=== PATIENT | male | born 1945 | race Caucasian/White ===

== ENCOUNTER → 2020-11-15 | Outpatient (CLI) | payer MEDICARE ==
[2020-11-16 03:07] LABS: Hepatitis B Surface Antigen Non-Reactive (Non-Reactive)
[2020-11-16 17:21] LABS: Hepatitis B Surface AB- Quant <3.5 mIU/mL; Hepatitis B Surface Antibody Non-Reactive (Non-Reactive)
== END | disposition home or self-care (01) ==
LOC: LABWHC1 11:34
PROVIDERS: ATTEND Internal Medicine Gastroenterology
DX: K50.80 Crohn's disease of both small and large intestine without complications (principal); F32.9 Major depressive disorder, single episode, unspecified
CPT/HCPCS: 36415; 86140; 86480; 86704; 86706; 87340

== ENCOUNTER → 2021-10-02 | Outpatient (CLI) | payer MEDICARE ==
[2021-10-02 14:42] LABS: HCT 45.5 % (39.6-50.0); HGB 15.2 g/dL (13.0-17.0); MCH 30.3 pg (27.0-32.0); MCHC 33.4 g/dL (32.0-37.0); MCV 90.8 fL (80.0-97.0); Mean Platelet Volume 10.2 fL (9.5-12.2); NRBC Per 100 WBC 0 /100 WBCS (0.0-0.0); Platelet Count 207 X 10*3/uL (140-440); RBC 5.01 X 10*6/uL (4.40-5.60); WBC 8.35 X 10*3/uL (4.50-10.00)
== END | disposition home or self-care (01) ==
LOC: LABWHC1 09:10
PROVIDERS: ATTEND Internal Medicine Gastroenterology
DX: K50.80 Crohn's disease of both small and large intestine without complications (principal)
CPT/HCPCS: 36415; 83993; 85027; 86140

== ENCOUNTER → 2021-11-19 | Day surgery (SDC) | payer MEDICARE ==
[~2021-11-19] MED LIST: GLUCAGON 1 MG/ML VIAL IM STA
[2021-11-19 08:29] VITALS: BP 133/85; PULSE 77; RESP 16; TEMP 98.3
--- NOTE | 2021-11-19 21:06 | MR ---
EXAMINATION TYPE: MR Enterography DATE OF EXAM: 11/19/2021 COMPARISON: HISTORY: CROHN'S DISEASE CONTRAST: Standard multiplanar, multisequence imaging of the abdomen is performed without and with IV contrast, patient is injected with 10 mL intravenous Gadavist gadolinium contrast. Oral Volumen and Water was given as per enterography protocol. FINDINGS: LOWER CHEST: No significant findings. ABDOMEN Bowel: The small bowel distention is inadequate proximally. There is postsurgical changes with circum ferential wall thickening of the anastomotic small bowel measuring up to 8 mm. There is mucosal hyper enhancement involving this anastomotic small bowel. This is best appreciated on series 901 image 69. No evidence for bowel obstruction. There is few scattered clonic diverticula seen throughout the sig moid colon. No evidence of abscess or fistula. Peritoneum: No evidence of pneumoperitoneum, free fluid. Prominently enlarged right lower quadrant l ymph nodes in the mesentery of the a forementioned small bowel anastomotic hyperenhancement and wall thickening. These measure up to 10 mm in short axis. Liver: Unremarkable. Gallbladder and Bile ducts: Low T2 signal polypoid lesions are seen in the gallbladder lumen. Pancreas: Unremarkable. Spleen: Unremarkable. Adrenal glands: Unremarkable. Kidneys: Bilateral parapelvic renal cysts. Bladder: Unremarkable. Reproductive: Unremarkable. Vasculature: Unremarkable. No aortic aneurysm. Musculoskeletal: The osseous structures appear intact. Abdominal wall: Unremarkable. IMPRESSION: 1. Post surgical changes of the colon with the anastomotic small bowel demonstrating mucosal hyperenh ancement and circumferential wall thickening suggestive of active Crohn's disease. There is associate d adjacent mesenteric reactive lymph nodes. 2. Colonic diverticulosis. 3. Cholelithiasis.
== END ==
LOC: RADMRIMAIN 08:07
PROVIDERS: ATTEND Internal Medicine Gastroenterology
DX: K50.80 Crohn's disease of both small and large intestine without complications (principal)
CPT/HCPCS: 96372; 72197; 74183; J1610; A9585

== ENCOUNTER → 2022-01-28 | Outpatient (CLI) | payer MEDICARE ==
[2022-01-28 15:13] LABS: Basophils # (A) 0.05 X 10*3/uL (0.00-0.10); Basophils % (A) 0.7 %; Eosinophils # (A) 0.31 X 10*3/uL (0.04-0.35); Eosinophils % (A) 4.4 %; HCT 45.2 % (39.6-50.0); Immature Grans, Automated 0.4 %; Lymphocytes # (A) 1.55 X 10*3/uL (0.90-5.00); Lymphocytes % (A) 21.8 %; MCH 30.5 pg (27.0-32.0); MCHC 33.2 g/dL (32.0-37.0); MCV 91.9 fL (80.0-97.0); Mean Platelet Volume 10.5 fL (9.5-12.2); Monocytes # (A) 0.66 X 10*3/uL (0.20-1.00); Monocytes % (A) 9.3 %; NRBC Per 100 WBC 0 /100 WBCS (0.0-0.0); Neutrophils # (A) 4.51 X 10*3/uL (1.80-7.70); Neutrophils % (A) 63.4 %; Platelet Count 215 X 10*3/uL (140-440); RBC 4.92 X 10*6/uL (4.40-5.60); WBC 7.11 X 10*3/uL (4.50-10.00)
[2022-01-28 15:40] LABS: ALT 22 U/L (10-49); AST 24 U/L (14-35); African American GFR (CKD) 54.9 (60.0-200.0); Albumin 4.3 g/dL (3.8-4.9); Albumin/Globulin Ratio 1.54 (1.60-3.17); Alkaline Phosphatase 59 U/L (41-126); BUN/Creat Ratio 20.35 Ratio (12.00-20.00); Blood Urea Nitrogen 28.7 mg/dL (9.0-27.0); Calcium 9.4 mg/dL (8.7-10.3); Carbon Dioxide 22.7 mmol/L (20.0-27.5); Chloride 105 mmol/L (96-109); Chol/HDL Ratio 5.31 Ratio; Globulin 2.8 g/dL (1.6-3.3); Glucose 118 mg/dL (70-110); LDL Cholesterol,Calculated 136.3 mg/dL (0.0-131.0); Non-African American GFR(CKD) 47.4 (60.0-200.0); Sodium 141 mmol/L (135-145); Total Protein 7.2 g/dL (6.2-8.2)
== END | disposition home or self-care (01) ==
LOC: LABWHC1 08:32
PROVIDERS: ATTEND Family Medicine
DX: N40.0 Benign prostatic hyperplasia without lower urinary tract symptoms (principal); R53.83 Other fatigue; E78.5 Hyperlipidemia, unspecified
CPT/HCPCS: 80061; 80053; 82607; 84443; 85025; 82306; 36415; G0103

== ENCOUNTER → 2022-02-18 | Outpatient (CLI) | payer MEDICARE ==
[2022-02-18 09:16] LABS: African American GFR (CKD) 75 (>60 ml/min/1.73 sqM); Anion Gap 10 mmol/L; Blood Urea Nitrogen 23 mg/dL (9-20); Calcium 9.2 mg/dL (8.4-10.2); Carbon Dioxide 24 mmol/L (22-30); Chloride 105 mmol/L (98-107); Glucose 114 mg/dL (74-99); Non-African American GFR(CKD) 65 (>60 ml/min/1.73 sqM); Potassium 4.9 mmol/L (3.5-5.1); Sodium 139 mmol/L (137-145)
== END | disposition home or self-care (01) ==
LOC: LABWHC1 08:35
PROVIDERS: ATTEND Family Medicine
DX: N28.9 Disorder of kidney and ureter, unspecified (principal)
CPT/HCPCS: 36415; 80048

== ENCOUNTER → 2022-10-28 | Outpatient (CLI) | payer MEDICARE ==
--- NOTE | 2022-10-29 20:16 | MR ---
EXAMINATION TYPE: MR brain and iac wo/w con DATE OF EXAM: 10/28/2022 6:50 PM CLINICAL INDICATION:Male, 76 years old with history of H90.821; COMPARISON: None TECHNIQUE: Multi planar, multi sequence imaging was performed through the brain. Specialized thin s equences were obtained through the internal auditory canals. Pre-and post gadolinium sequences were obtained. MR contrast: IV Contrast: 10 cc Gadavist FINDINGS: The alvarez-white junctions, ventricular system, and cisterns appear unremarkable. Midline structures sh ow no abnormality. Diffusion-weighted imaging shows no evidence of restricted diffusion. The suscepti bility weighted images do not reveal any evidence for micro-hemorrhage. The bone marrow signal is within normal limits. Paranasal sinuses and mastoid air cells: Mild scattered paranasal sinus disease. Visualized orbits: Bilateral aphakia After administration of gadolinium, no abnormal enhancement is seen. The internal auditory canal sequences demonstrate no significant irregularity. The 7th cranial nerve s, 8 cranial nerves, and cerebellar pontine angles appear unremarkable. After the administration krishna olinium, no abnormal enhancement is seen within the internal auditory canals. Vascular loop: Left Type II: entering, but not extending >50% of the length of the IAC IMPRESSION: 1. No evidence of intracranial mass nor acute/subacute CVA. 2. No evidence of internal auditory canal abnormality. 3. Left type 2 internal auditory canal vascular loop.
== END | disposition home or self-care (01) ==
LOC: RADMRIMAIN 17:30
PROVIDERS: ATTEND Otolaryngology Sleep Medicine
DX: H90.A21 Sensorineural hearing loss, unilateral, right ear, with restricted hearing on the contralateral side (principal); G46.8 Other vascular syndromes of brain in cerebrovascular diseases
CPT/HCPCS: 70553; A9585

== ENCOUNTER 2023-07-25 19:07 | Observation (INO) | payer MEDICARE ==
--- NOTE | 2023-07-25 19:28 | ED ---
Chest Pain HPI - General Chief Complaint: Chest Pain Stated Complaint: Chest Pains Time Seen by Provider: 07/25/23 19:14 Source: patient Mode of arrival: ambulatory Limitations: no limitations - History of Present Illness Initial Comments: 77-year-old male presenting with chief complaint of chest pain. Pain started around 40 minutes prior to arrival. The pain was persistent for about 30 minutes. Craig like a pressure in the center of the chest. No active chest pain at this time. Not worse with exertion. No shortness of breath. No nausea or vomiting. No dizziness. No cough, congestion, sore throat, fever, chills. Pain does not radiate to the shoulder or jaw. No numbness tingling or weakness. Patient has no cardiac history. He took one 81 mg aspirin prior to arrival - Related Data Home Medications Medication Instructions Recorded Confirmed buPROPion HCL [buPROPion HCL XL] 300 mg PO DAILY 11/19/21 07/25/23 traZODone HCL [Desyrel] 50 mg PO HS 11/19/21 07/25/23 Ascorbic Acid [Vitamin C] 1,000 mg PO DAILY 07/25/23 07/25/23 Aspirin EC [Ecotrin Low Dose] 81 mg PO DAILY 07/25/23 07/25/23 Finasteride [Proscar] 5 mg PO HS 07/25/23 07/25/23 L.acidoph,Paracasei, B.lactis 1 cap PO DAILY 07/25/23 07/25/23 [Probiotic] Lurasidone [Latuda] 40 mg PO DAILY 07/25/23 07/25/23 [place]-3/Dha/Epa/Fish Oil [Fish Oil 1 cap PO DAILY 07/25/23 07/25/23 1,000 mg Softgel] Sertraline [Zoloft] 50 mg PO BID 07/25/23 07/25/23 Vitamin B Complex 1 cap PO DAILY 07/25/23 07/25/23 Allergies Allergy/AdvReac Type Severity Reaction Status Date / Time No Known Allergies Allergy Verified 07/25/23 20:47 Review of Systems ROS Statement: Those systems with pertinent positive or pertinent negative responses have been documented in the HPI. ROS Other: All systems not noted in ROS Statement are negative. EKG Findings - EKG Comments: EKG Findings:: Sinus rhythm with first-degree AV block ventricular rate 89. W[place] interval 216. QRS 110. Past Medical History Past Medical History: No Reported History Additional Past Medical History / Comment(s): crohns History of Any Multi-Drug Resistant Organisms: None Reported Past Surgical History: Bowel Resection, Hernia Repair Past Psychological History: Depression Smoking Status: Never smoker Past Alcohol Use History: None Reported Past Drug Use History: None Reported General Exam Limitations: no limitations General appearance: alert, in no apparent distress Head exam: Present: atraumatic, normocephalic Eye exam: Present: normal appearance, EOMI Neck exam: Present: normal inspection Respiratory exam: Present: normal lung sounds bilaterally. Absent: respiratory distress, wheezes, rales, rhonchi, stridor Cardiovascular Exam: Present: regular rate, normal rhythm, normal heart sounds. Absent: systolic murmur, diastolic murmur, rubs, gallop, clicks Neurological exam: Present: alert, oriented X3 Psychiatric exam: Present: normal affect, normal mood Skin exam: Present: warm, dry Course Vital Signs 07/25/23 07/25/23 07/25/23 19:09 19:20 20:12 Temperature 97.8 F Pulse Rate 88 84 82 Respiratory 18 18 18 Rate Blood Pressure 119/78 134/87 137/88 O2 Sat by Pulse 97 95 95 Oximetry 07/25/23 21:59 Temperature Pulse Rate 82 Respiratory 16 Rate Blood Pressure 138/84 O2 Sat by Pulse 94 L Oximetry Chest Pain MDM - MDM Was pt. sent in by a medical professional or institution (, PA, WIPING RAG WASHER, urgent care, hospital, or retirement...) When possible be specific @ -No Did you speak to anyone other than the patient for history (EMS, parent, family, police, friend...)? What history was obtained from this source @ -No Did you review nursing and triage notes (agree or disagree)? Why? @ -I reviewed and agree with nursing and triage notes Were old charts reviewed (outside hosp., previous admission, EMS record, old EKG, old radiological studies, urgent care reports/EKG's, retirement records)? Report findings @ -No old charts were reviewed Differential Diagnosis (chest pain, altered mental status, abdominal pain women, abdominal pain men, vaginal bleeding, weakness, fever, dyspnea, syncope, headache, dizziness, GI bleed, back pain, seizure, CVA, palpatations, mental health, musculoskeletal)? @ -MDM Differential Chest Pain: Stable Angina, Unstable Angina, STEMI, NSTEMI Aortic Dissection, Pneumothorax, Musculoskeletal, Esophageal Spasm GERD, Cholecystitis, Pancreatitis, Zoster This is not meant to be an all-inclusive list. EKG interpreted by me (3pts min.). @ -As above X-rays interpreted by me (1pt min.). @ -Chest x-ray shows no acute process CT interpreted by me (1pt min.). @ -None done U/S interpreted by me (1pt. min.). @ -None done What testing was considered but not performed or refused? (CT, X-rays, U/S, labs)? Why? @ -None What meds were considered but not given or refused? Why? @ -None Did you discuss the management of the patient with other professionals (professionals i.e. , PA, WIPING RAG WASHER, lab, RT, psych nurse, drug abuse social worker, lawyer real estate, teacher, education officer, hospice case manager)? Give summary @ -I spoke with Dr. De La Cruz who accepted admission Was smoking cessation discussed for >3mins.? @ -No Was critical care preformed (if so, how long)? @ -No Were there social determinants of health that impacted care today? How? (Homelessness, low income, unemployed, alcoholism, drug addiction, transportation, low edu. Level, literacy, decrease access to med. care, [facility], rehab)? @ -No Was there de-escalation of care discussed even if they declined (Discuss DNR or withdrawal of care, Hospice)? DNR status @ -No What co-morbidities impacted this encounter? (DM, HTN, Smoking, COPD, CAD, Cancer, CVA, ARF, Chemo, Hep., AIDS, mental health diagnosis, sleep apnea, morbid obesity)? @ -None Was patient admitted / discharged? Hospital course, mention meds given and route, prescriptions, significant lab abnormalities, going to OR and other pertinent info. @ -77-year-old male presenting with chief complaint of chest pain. He describes this as a pressure-like pain that was located in the center of the chest. Pain stopped about 10 minutes prior to my examination. History and physical exam are conducted. His lab work is grossly unremarkable, negative troponin. Chest x-ray shows no acute process. EKG shows no ST deviation. On reassessment he is resting comfortably in no acute distress. Pain has not returned. Patient is educated on today's findings. He will be admitted for observation with repeat troponins and evaluation by cardiology. He is agreeable with this plan. I discussed this case with my attending Dr. Bradley Undiagnosed new problem with uncertain prognosis? @ -No Drug Therapy requiring intensive monitoring for toxicity (Heparin, Nitro, Insulin, Cardizem)? @ -No Were any procedures done? @ -No Diagnosis/symptom? @ -Chest pain Acute, or Chronic, or Acute on Chronic? @ -Acute Uncomplicated (without systemic symptoms) or Complicated (systemic symptoms)? @ -Complicated Side effects of treatment? @ -No Exacerbation, Progression, or Severe Exacerbation? @ -No Poses a threat to life or bodily function? How? (Chest pain, [place], PA, pneumonia, PE, COPD, DKA, ARF, appy, cholecystitis, CVA, Diverticulitis, Homicidal, Suicidal, threat to staff... and all critical care pts) @ -Yes Disposition Clinical Impression: Chest pain Disposition: ADMITTED IP TO THIS HOSP Condition: Fair Time of Disposition: 21:10
[2023-07-25] MEDS: SODIUM CHLORIDE 0.9% 500 ML 500 ML IV STA (19:45)
[2023-07-25] MEDS: ASPIRIN 81 MG PO STA (19:45)
[2023-07-25 20:11] LABS: Basophils # (A) 0.1 k/uL (0-0.2); Basophils % (A) 1 %; Eosinophils # (A) 0.3 k/uL (0-0.7); Eosinophils % (A) 4 %; HCT 45.6 % (39.0-53.0); HGB 14.9 gm/dL (13.0-17.5); Lymphocytes # (A) 2.1 k/uL (1.0-4.8); Lymphocytes % (A) 28 %; MCH 30.2 pg (25.0-35.0); MCHC 32.8 g/dL (31.0-37.0); MCV 92.2 fL (80.0-100.0); Mean Platelet Volume 7.5; Monocytes # (A) 0.5 k/uL (0-1.0); Monocytes % (A) 6 %; Neutrophils # (A) 4.5 k/uL (1.3-7.7); Neutrophils % (A) 59 %; Platelet Count 180 k/uL (150-450); RBC 4.94 m/uL (4.30-5.90); RDW 13.8 % (11.5-15.5); WBC 7.6 k/uL (3.8-10.6)
[2023-07-25 20:20] LABS: Partial Thromboplastin Time 22.8 sec (22.0-30.0); Prothrombin Time 10.6 sec (10.0-12.5)
[2023-07-25 20:25] LABS: ALT 45 U/L (4-49); AST 59 U/L (17-59); African American GFR (CKD) 74 (>60 ml/min/1.73 sqM); Alkaline Phosphatase 77 U/L (38-126); Amylase 63 U/L (30-110); Anion Gap 8 mmol/L; Blood Urea Nitrogen 27 mg/dL (9-20); Calcium 9.7 mg/dL (8.4-10.2); Carbon Dioxide 23 mmol/L (22-30); Chloride 106 mmol/L (98-107); Glucose 117 mg/dL (74-99); Lipase 33 U/L (23-300); Magnesium 1.8 mg/dL (1.6-2.3); Non-African American GFR(CKD) 64 (>60 ml/min/1.73 sqM); Sodium 137 mmol/L (137-145); Total Bilirubin 0.6 mg/dL (0.2-1.3); Total Protein 6.5 g/dL (6.3-8.2)
--- NOTE | 2023-07-25 20:57 | XR ---
EXAMINATION TYPE: XR chest 2V DATE OF EXAM: 07/25/2023 7:57 PM CLINICAL INDICATION:Male, 77 years old with history of Chest Pain; [facility] COMPARISON: None TECHNIQUE: XR chest 2V. Frontal and lateral views of the chest.. FINDINGS: Lines/Tubes/Devices: EKG leads overlie the chest. No indwelling lines are seen. Heart/mediastinum: Heart size is normal. Mediastinum appears normal. Pulmonary vascularity: Not increased, Lungs/Pleura: There is no evidence of pleural effusion, focal consolidation, or pneumothorax. Mild c hronic change versus subsegmental atelectasis at the left lung base. Musculoskeletal: No acute osseous abnormality demonstrated in the limits of the exam. Multilevel endplate spurring in the spine. Other findings: None. IMPRESSION: No acute cardiopulmonary abnormality.
[2023-07-25] MEDS ORDERED: NALOXONE 0.4 MG/ML 1 ML VIAL IV PRN (21:09)
--- NOTE | 2023-07-26 04:32 | P.HPIM ---
History of Present Illness H&P Date: 07/25/23 Chief Complaint: Chest pain 77-year-old male with history of depression coming in for evaluation of chest pain he describes sudden onset while having dinner with his family felt chest pressure across his chest nonradiating not associated with any shortness of breath dizziness lightheadedness nausea vomiting profuse sweating or palpitations. Patient took 1 baby aspirin at home waited for about 45 minutes patient pain was not improving and decided to come in for evaluation Patient reports years ago he had a left heart cath and a stress test and both reported to be normal normal Patient denies any tobacco smoking illicit drugs or heavy alcohol Patient denies any recent travel leg swelling denies any history of blood clots denies any diagnosis of cancer. Patient reports that normally he he is pretty much not active does not climb any stairs does not do any house chores however he is able to go grocery shopping pushes the cart with no limitations related chest pain or shortness of breath review of systems Pertinent positives as noted in HPI. All other systems were reviewed and are negative on exam Constitutional: No acute distress, conversant, pleasant Eyes: Anicteric sclerae, moist conjunctiva, Pupils equal round reactive to light ENMT: NC/AT Oropharynx clear, no erythema, or exudates Neck: Supple, no masses, or JVD No carotid bruits No thyromegaly Lungs: Clear to auscultation Clear to percussion Normal respiratory effort, no accessory muscle use Cardiovascular: Heart regular in rate and rhythm, No murmurs, gallops, or rubs No peripheral edema Abdominal: Soft Nontender, no guarding, rebound or rigidity Abdomen moving with respiration Normoactive bowel sounds b Extremities: No digital cyanosis No clubbing Pedal pulses intact and symmetrical Radial pulses intact and symmetrical No calf tenderness Psychiatric: Alert and oriented to person, place and time Appropriate affect fair judgement Neuro Muscles Strength 5/5 in all 4 extremities Sensation to light touch grossly present throughout Cranial nerves II-XII grossly intact Past Medical History Past Medical History: No Reported History Additional Past Medical History / Comment(s): crohns History of Any Multi-Drug Resistant Organisms: None Reported Past Surgical History: Bowel Resection, Hernia Repair Past Psychological History: Depression Smoking Status: Never smoker Past Alcohol Use History: None Reported Past Drug Use History: None Reported Medications and Allergies Home Medications Medication Instructions Recorded Confirmed Type buPROPion HCL [buPROPion HCL XL] 300 mg PO DAILY 11/19/21 07/25/23 History traZODone HCL [Desyrel] 50 mg PO HS 11/19/21 07/25/23 History Ascorbic Acid [Vitamin C] 1,000 mg PO DAILY 07/25/23 07/25/23 History Aspirin EC [Ecotrin Low Dose] 81 mg PO DAILY 07/25/23 07/25/23 History Finasteride [Proscar] 5 mg PO HS 07/25/23 07/25/23 History L.acidoph,Paracasei, B.lactis 1 cap PO DAILY 07/25/23 07/25/23 History [Probiotic] Lurasidone [Latuda] 40 mg PO DAILY 07/25/23 07/25/23 History [place]-3/Dha/Epa/Fish Oil [Fish Oil 1 cap PO DAILY 07/25/23 07/25/23 History 1,000 mg Softgel] Sertraline [Zoloft] 50 mg PO BID 07/25/23 07/25/23 History Vitamin B Complex 1 cap PO DAILY 07/25/23 07/25/23 History Allergies Allergy/AdvReac Type Severity Reaction Status Date / Time No Known Allergies Allergy Verified 07/25/23 20:47 Physical Exam Vitals: Vital Signs Temp Pulse Pulse Resp BP BP Pulse Ox 07/26/23 02:50 97.5 F L 101 H 16 128/73 95 07/25/23 23:06 97.6 F 77 16 127/78 94 L 07/25/23 21:59 82 16 138/84 94 L 07/25/23 20:12 82 18 137/88 95 07/25/23 19:20 84 18 134/87 95 07/25/23 19:09 97.8 F 88 18 119/78 97 Intake and Output 07/25/23 07/25/23 07/26/23 14:59 22:59 06:59 Other: # Voids 2 Weight 99.79 kg Results CBC & Chem 7: 07/25/23 19:49 07/25/23 19:49 Labs: Abnormal Lab Results - Last 24 Hours (Table) 07/25/23 Range/Units 19:49 BUN 27 H (9-20) mg/dL Glucose 117 H (74-99) mg/dL Thrombosis Risk Factor Assmnt - Choose All That Apply Any of the Below Risk Factors Present?: Yes Each Factor Represents 1 point: Obesity (BMI >25) Other Risk Factors: Yes Each Risk Factor Represents 3 Points: Age 75 years or older Other congenital or acquired thrombophilia - If yes, enter type in comment: No Thrombosis Risk Factor Assessment Total Risk Factor Score: 4 Thrombosis Risk Factor Assessment Level: Moderate Risk Assessment and Plan Assessment: 77-year-old male with depression coming in for central chest pain I discussed the case with ED doctor and accepted the admission for atypical chest pain rule out acute coronary syndrome with anticipated length of stay more than 2 midnights Chest pain Tropes negative continue to trend Cardiac monitoring Start patient on atorvastatin 40 mg daily Cardiology consult Pain control with nitro as needed Aspirin 325 one-time thing continue with 81 mg daily Atorvastatin 40 mg p.o. daily Depression Resume home medications BPH Continue with finasteride Full code DVT prophylaxis heparin subcu 3 times daily
[2023-07-26] MEDS ORDERED: ALPRAZolam 0.25 MG TAB PO PRN (08:52)
[2023-07-26] MEDS ORDERED: NITROGLYCERIN SL TABS 0.4 MG TAB SUBLINGUAL PRN (08:52)
[2023-07-26] MEDS ORDERED: ALPRAZolam 0.5 MG TAB PO PRN (08:52)
[2023-07-26 08:54] VITALS: PULSE 80
[2023-07-26] MEDS: ASPIRIN 81 MG PO SCH (08:57)
[2023-07-26] MEDS: ATORVASTATIN 40 MG TAB PO SCH (08:58)
[2023-07-26] MEDS ORDERED: VERAPAMIL 2.5 MG/ML 2 ML AMP ONE (09:08)
[2023-07-26] MEDS ORDERED: LIDOCAINE 1% INJ 10MG/ML (20 ML MDV) ONE ×2 (09:08→09:56)
[2023-07-26] MEDS ORDERED: fentaNYL (PF) 50 MCG/ML 2 ML AMP ONE (09:08)
[2023-07-26] MEDS ORDERED: HEPARIN SODIUM 1,000 UN/ML (10ML VL) ONE (09:08)
[2023-07-26] MEDS: ATORVASTATIN 80 MG TAB PO STA (09:13)
[2023-07-26] MEDS: ASPIRIN 325 MG TAB PO STA (09:13)
[2023-07-26] MEDS: HEPARIN SODIUM,PORCINE 5,000 UNIT/ML 1 ML VIAL SQ SCH (09:14)
[2023-07-26] MEDS: IV FLUID CONTINUATION 1,000 ML IV ONE (09:18)
[2023-07-26] MEDS: SODIUM CHLORIDE 0.9% 1,000 ML in EMPTY BAG 1 BAG IV SCH (09:28)
[2023-07-26] MEDS: LIDOCAINE 2% (PF) 20 MG/ML 5 ML VIAL SQ ONE (09:50)
[2023-07-26] MEDS: MIDAZOLAM 2 MG/2 ML VIAL IVP ONE ×3 (09:52→10:06)
[2023-07-26] MEDS: fentaNYL (PF) 50 MCG/1 ML VIAL IVP ONE ×2 (09:53→10:04)
--- NOTE | 2023-07-26 09:57 | CONS ---
CONSULTATION CHIEF COMPLAINT: Chest pain. HISTORY OF PRESENT ILLNESS: This is a 77-year-old gentleman with history of depression, who presents to hospital with chest pain. He describes it as a pressure-like sensation in the precordial area that lasted for about half an hour without definite radiation to neck, arm, or back. The pain had resolved after coming to the emergency room. He took an aspirin and following which he became pain-free. His EKG shows sinus rhythm with evidence of prior inferior wall myocardial infarction, left axis deviation, raising the possibility of prior inferior wall myocardial infarction and ST-T wave changes. There is no prior history of coronary artery disease or congestive heart failure. I reviewed the patient does not have any history of diabetes, hypertension, dyslipidemia, smoking. I talked to patient at length and talked to him about his treatment options including cardiac catheterization, stress test, understanding risks and benefits he wishes to proceed with cardiac cath for definitive diagnosis. PAST MEDICAL HISTORY: Significant for depression. CURRENT MEDICATIONS: Include: 1. Proscar. 2. Aspirin. 3. Bupropion. 4. Zoloft. 5. Latuda. ALLERGIES: There are no known drug allergies. FAMILY HISTORY: Negative for premature coronary artery disease. SOCIAL HISTORY: Negative for smoking, EtOH abuse, or drug abuse. REVIEW OF SYSTEMS: 14 out of 14 review of systems has been performed. Pertinents are as documented on exam. PHYSICAL EXAMINATION: GENERAL: Comfortable at rest. Afebrile. VITAL SIGNS: Stable. NECK: There is no jugular venous distention. Carotid upstroke is normal. There is no bruit. CHEST: Reveals good air entry bilaterally. HEART: Reveals first and second heart sounds. No gallop. No murmur. ABDOMEN: Soft, nontender. EXTREMITIES: Did not reveal any edema. Peripheral pulses are felt. LABORATORY DATA: Labs showed that the troponins are negative. Hemoglobin is normal. Renal functions are normal. ASSESSMENT: Unstable angina. PLAN: Patient will undergo cardiac catheterization. Understands risks, benefits, and alternatives. MMODL / IJN: [id number] /
[2023-07-26] MEDS: ISOSORBIDE MONONITRATE ER 30 MG TAB.ER.24H PO SCH (10:13)
[2023-07-26] MEDS: IOPAMIDOL-370 100ML BTL INTRATHECA ONE (10:24)
[2023-07-26] MEDS ORDERED: RX INFO: IV CONTRAST WAS GIVEN 1 EACH MISC MISCELLANE PRN (10:28)
--- NOTE | 2023-07-26 10:42 | CC ---
CARDIAC CATHETERIZATION REPORT INDICATION: Unstable angina. PROCEDURE NOTE: After obtaining informed consent, left heart catheterization and coronary angiogram were performed via the right femoral artery using standard Lynn catheters. The patient will receive moderate conscious sedation. Total sedation time was 24 minutes. Femoral angiogram was performed and Angio-Seal will be deployed for hemostasis. I initially attempted vascular access of the right radial artery with Seldinger technique. We were able to pass the wire through the needle, however, we had difficulty placing the 6-Bolivian sheath. Hence I stopped the procedure from the radial route and proceeded to perform the cath via the right femoral artery. The procedure was completed uneventfully and the right radial artery access site was stable without any bleeding or hematoma at the end of the procedure. FINDINGS: 1. Hemodynamics: Left ventricular end-diastolic pressure is 12 mm. There is no significant gradient across the aortic valve. 2. Left ventriculogram: Left ventriculogram is not performed. 3. Angiographic data: a.Right coronary artery: Right coronary artery is a large dominant vessel that shows mild nonobstructive CAD. Left main coronary artery is a normal-sized vessel and is free of stenosis. Divides into left anterior descending coronary artery and circumflex coronary artery. LAD and its branches, circumflex coronary artery and its branches are free of significant stenosis. 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 PLAN: The patient's chest discomfort is not related to underlying ischemic heart disease. I will obtain a 2D echo to evaluate the pericardium and the aortic root and possible discharge home tomorrow morning. MMJENNIFERL / FIDENCION: [id number] /
--- NOTE | 2023-07-26 12:41 | CA ---
Transthoracic Echo Report Name: Wilfrid Vora Age: 77 Gender: M : 1945 Exam Date: 07/26/2023 09:08 Exam Location: [facility] Ht (in): 73 Wt (lb): 220 Ordering Physician: Aldo Peters MD ([id number]) Attending/Referring Phys: Fran RIVERO Lead Technologist In Cytogenetics Vicky Hagen RDCS Procedure CPT: Indications: Chest Pain Cardiac Hx: Technical Quality: Good Contrast 1: Total Dose (mL): Contrast 2: Total Dose (mL): MEASUREMENTS (Male / Female) Normal Values 2D ECHO LV Diastolic Diameter PLAX 4.7 cm 4.2 - 5.9 / 3.9 - 5.3 cm LV Systolic Diameter PLAX 2.9 cm IVS Diastolic Thickness 1.2 cm 0.6 - 1.0 / 0.6 - 0.9 cm LVPW Diastolic Thickness 1.2 cm 0.6 - 1.0 / 0.6 - 0.9 cm LV Relative Wall Thickness 0.5 RV Internal Dim ED PLAX 3.8 cm LA Systolic Diameter LX 4.0 cm 3.0 - 4.0 / 2.7 - 3.8 cm LV Diastolic Volume MOD BP 82.9 cm??? 67 - 155 / 56 - 104 cm??? LV Systolic Volume MOD BP 27.6 cm??? 22 - 58 / 19 - 49 cm??? LV Ejection Fraction MOD BP 66.7 % >= 55 % LV Diastolic Volume MOD 4C 85.1 cm??? LV Systolic Volume MOD 4C 20.9 cm??? LV Ejection Fraction MOD 4C 75.4 % LV Diastolic Length 4C 7.4 cm LV Systolic Length 4C 5.5 cm LV Diastolic Volume MOD 2C 84.5 cm??? LV Systolic Volume MOD 2C 34.3 cm??? LV Ejection Fraction MOD 2C 59.4 % LV Diastolic Length 2C 7.4 cm LV Systolic Length 2C 6.2 cm LA Volume 50.6 cm??? 18 - 58 / 22 - 52 cm??? LA Volume Index 22.1 cm???/m??? 16 - 28 cm???/m??? M-MODE Aortic Root Diameter MM 3.1 cm AV Cusp Separation MM 2.0 cm DOPPLER AV Peak Velocity 106.0 cm/s AV Peak Gradient 4.5 mmHg MV Area PHT 2.8 cm??? Mitral E Point Velocity 61.0 cm/s Mitral A Point Velocity 93.7 cm/s Mitral E to A Ratio 0.7 MV Deceleration Time 275.3 ms FINDINGS Left Ventricle Left ventricular ejection fraction is estimated at 55-60 %. Left ventricular cavity size normal. Mildly increased septal wall thickness. No obvious regional wall motion abnormalities. Right Ventricle Mild right ventricular dilatation. Unable to estimate the right ventricular systolic pressure. Right Atrium Normal right atrial size. Left Atrium Normal left atrial size. Mitral Valve Structurally normal mitral valve. No mitral stenosis, regurgitation or prolapse. Aortic Valve Trileaflet aortic valve. No aortic valve stenosis or regurgitation. Tricuspid Valve Structurally normal tricuspid valve. No tricuspid stenosis, regurgitation or prolapse. Pulmonic Valve Structurally normal pulmonic valve. No pulmonic regurgitation. Pericardium No pericardial effusion. Aorta Normal size aortic root and proximal ascending aorta. CONCLUSIONS Normal LV function Mildly dilated right ventricle Previewed by: Dr. Aldo Peters MD (Electronically Signed) Final Date: 26 July 2023 12:41
[2023-07-26] MEDS: buPROPion XL 300 MG TAB.ER.24H PO SCH (15:02)
[2023-07-26] MEDS: SERTRALINE 50 MG TAB PO SCH (15:03)
[2023-07-26] MEDS: SODIUM CHLORIDE 0.9% 1,000 ML IV SCH (15:03)
[2023-07-26] MEDS: LURASIDONE 40 MG TAB PO SCH (15:03)
--- NOTE | 2023-07-26 16:24 | P.DS ---
Providers Date of admission: 07/25/23 21:09 Expected date of discharge: 07/26/23 Attending physician: Elsy De La Cruz MD Consults: 07/25/23 21:09 Consult Physician Urgent Consulting Provider: [facility] Consult Reason/Comments: chest pain Do you want consulting provider notified?: Yes, Notify in am Primary care physician: Mikey Douglas Hospital Course: Chest pain Depression BPH Gen: In NAD, non-toxic HEENT: normocephalic, atraumatic, hearing acuity is intant, mucous membranes moist CVS: perfusing all extremities well, no pitting edema, Respiratory: symmetric chest expansion, no accessory muscle use, GI: soft, NTTP, ND, : no suprapubic tenderness, no CVA tenderness MSK/Derm: no rashes, cyanosis Neuro: CN II-XII intact, no motor weakness, Psych: cooperative, euthymic mood, judgment and insight is intact Hospital Course: 77-year-old male with history of depression coming in for evaluation of chest pain he describes sudden onset while having dinner with his family felt chest pressure across his chest nonradiating not associated with any shortness of breath dizziness lightheadedness nausea vomiting profuse sweating or palpitations. Pt was admitted to observation, and had cardiology consult. Pt underwent LHC on 07/25 which showed mild non-obstructive CAD of the RCA. He was d/c'd home with PCP cardiology f/u. I spent 34 minutes coordinating this discharge Patient Condition at Discharge: Fair Plan - Discharge Summary Discharge Rx Participant: No New Discharge Prescriptions: New Atorvastatin [Lipitor] 40 mg PO DAILY #30 tab Isosorbide Mononitrate ER [Imdur] 30 mg PO DAILY #30 tab Continue Vitamin B Complex 1 cap PO DAILY Ascorbic Acid [Vitamin C] 1,000 mg PO DAILY L.acidoph,Paracasei, B.lactis [Probiotic] 1 cap PO DAILY traZODone HCL [Desyrel] 50 mg PO HS buPROPion HCL [buPROPion HCL XL] 300 mg PO DAILY [place]-3/Dha/Epa/Fish Oil [Fish Oil 1,000 mg Softgel] 1 cap PO DAILY Finasteride [Proscar] 5 mg PO HS Aspirin EC [Ecotrin Low Dose] 81 mg PO DAILY Sertraline [Zoloft] 50 mg PO BID Lurasidone [Latuda] 40 mg PO DAILY Discharge Medication List buPROPion HCL [buPROPion HCL XL] 300 mg PO DAILY 11/19/21 [History] traZODone HCL [Desyrel] 50 mg PO HS 11/19/21 [History] Ascorbic Acid [Vitamin C] 1,000 mg PO DAILY 07/25/23 [History] Aspirin EC [Ecotrin Low Dose] 81 mg PO DAILY 07/25/23 [History] Finasteride [Proscar] 5 mg PO HS 07/25/23 [History] L.acidoph,Paracasei, B.lactis [Probiotic] 1 cap PO DAILY 07/25/23 [History] Lurasidone [Latuda] 40 mg PO DAILY 07/25/23 [History] [place]-3/Dha/Epa/Fish Oil [Fish Oil 1,000 mg Softgel] 1 cap PO DAILY 07/25/23 [History] Sertraline [Zoloft] 50 mg PO BID 07/25/23 [History] Vitamin B Complex 1 cap PO DAILY 07/25/23 [History] Atorvastatin [Lipitor] 40 mg PO DAILY #30 tab 07/26/23 [Rx] Isosorbide Mononitrate ER [Imdur] 30 mg PO DAILY #30 tab 07/26/23 [Rx] Follow up Appointment(s)/Referral(s): Mikey Douglas MD [Primary Care Provider] - 1-2 days Discharge Disposition: HOME SELF-CARE
[2023-07-26 16:27] VITALS: BP 130/76; RESP 18; TEMP 97.9
[2023-07-26] MEDS ORDERED: traZODone HCL 50 MG TAB PO SCH (21:00)
[2023-07-26] MEDS ORDERED: FINASTERIDE 5 MG TAB PO SCH (21:00)
[2023-07-27] MEDS ORDERED: HEPARIN SODIUM,PORCINE (1 ML) 2,500 UNIT in SODIUM CHLORIDE 0.9% 250 ML IRRIGATION PRN (07:00)
[2023-07-27] MEDS ORDERED: HEPARIN SODIUM,PORCINE 10,000 UNIT in SODIUM CHLORIDE 0.9% 1,000 ML IRRIGATION PRN (07:00)
== END 2023-07-26 18:45 | disposition home or self-care (01) ==
LOC: EC 19:07 → 6NMEDSUR 21:09
PROVIDERS: ADMIT Internal Medicine; ATTEND Internal Medicine
DX: I25.110 Atherosclerotic heart disease of native coronary artery with unstable angina pectoris (principal); F32.A Depression, unspecified; I25.2 Old myocardial infarction; N40.0 Benign prostatic hyperplasia without lower urinary tract symptoms; Z79.899 Other long term (current) drug therapy; Z79.82 Long term (current) use of aspirin
CPT/HCPCS: 99285; 36415; 93005; 93306; 93458; 80053; 82150; 83690; 83735; 84484 ×2; 85025; 85610; 85730; 71046; G0378 ×2; C1760; C1769 ×2; C1894 ×2; J2250; Q9967; J2001; J3010

== ENCOUNTER → 2023-10-13 | Outpatient (CLI) | payer MEDICARE ==
[2023-10-13 14:28] LABS: African American GFR (CKD) 61 (>60 ml/min/1.73 sqM); Blood Urea Nitrogen 23 mg/dL (9-20); Non-African American GFR(CKD) 53 (>60 ml/min/1.73 sqM)
--- NOTE | 2023-10-19 22:51 | CT ---
EXAMINATION TYPE: CT urogram wo/w con DATE OF EXAM: 10/13/2023 COMPARISON: None HISTORY: 77-year-old male [id number] Microscopic hematuria. TECHNIQUE: Contiguous axial scanning of the abdomen and pelvis performed without and with IV Contrast , patient injected with 80 mL of Isovue 300. Delayed images through the kidneys and bladder were obta ined. Coronal/sagittal reconstructions performed. 3-D reconstructions generated on a dedicated [employer] workstation. CT DLP: 3540.2 mGycm Automated exposure control for dose reduction was used. FINDINGS: The heart is normal size without pericardial effusion. Strandy atelectasis or scarring in the lower l ungs. No pleural effusion. Tiny hiatal hernia. No focal liver lesion or biliary ductal dilatation. Portal venous system is patent. Numerous gallstones within the gallbladder. Stones measure up to 7 mm. No abnormal gallbladder disten tion. Adrenal glands, spleen, and pancreas within normal limits. No nephrolithiasis or hydronephrosis. A few parapelvic cysts within the left kidney measuring up to 1 cm as well as a small cortical cyst m easuring 1 cm well. No suspicious renal mass. No abnormal filling defect identified within the renal collecting systems o r along the course of either ureter. Extensive bladder calculi are present, largest measuring up to 3.2 cm. Prostate gland is enlarged nancy suring up to 6.0 cm wide with soft tissue impression asymmetrically at the right posterior bladder ba se. Moderate circumferential bladder wall thickening. No dilated small bowel, free fluid, or free air. No mesenteric or retroperitoneal lymphadenopathy. Tiny fatty umbilical hernia measuring 1.3 cm. Postoperative change of previous partial right hemicolectomy with ileocolonic anastomosis at the prox imal transverse colon. There is scattered mild stool. Left-sided colonic diverticulosis greatest with in the proximal to mid sigmoid colon. Some prominent pericolonic vessels are noted here. Mild wall th ickening may be a product of chronic diverticulitis. Small pelvic phleboliths. Bladder described above. No abnormal fluid collection in the pelvis or pelv ic lymphadenopathy. Bones: Moderate degenerative change of the hips. Hypertrophic facet arthropathy mid to lower lumbar s pine. [facility] in the lower thoracic spine. IMPRESSION: 1. NO SUSPICIOUS RENAL MASS OR COLLECTING SYSTEM LESION. A COUPLE BENIGN LEFT-SIDED RENAL CYSTS MEASU RING UP TO 1 CM. NO RENAL CALCULI OR HYDRONEPHROSIS. 2. HOWEVER, THERE ARE NUMEROUS BLADDER STONES MEASURING UP TO 3.2 CM. MODERATE CIRCUMFERENTIAL BLADDE R WALL THICKENING PROBABLY CHRONIC FOR THE PATIENT DUE TO CHRONIC BLADDER OUTLET OBSTRUCTION. 3. PROSTATOMEGALY MEASURING UP TO 6.0 CM WIDE. THERE IS ECCENTRIC SOFT TISSUE IMPRESSING ON THE RIGHT BLADDER BASE FROM THE PROSTATE GLAND. CORRELATE WITH PSA VALUES AND PROSTATE ULTRASOUND IF INDICATED . 4. CHOLELITHIASIS, TINY HIATAL HERNIA, AND LEFT-SIDED COLONIC DIVERTICULOSIS GREATEST IN THE SIGMOID COLON.
== END | disposition home or self-care (01) ==
LOC: RADCTMAIN 13:46
PROVIDERS: ATTEND Family Medicine
DX: R31.29 Other microscopic hematuria (principal); K50.90 Crohn's disease, unspecified, without complications; N28.1 Cyst of kidney, acquired; N32.0 Bladder-neck obstruction; N21.0 Calculus in bladder; N40.0 Benign prostatic hyperplasia without lower urinary tract symptoms; K80.20 Calculus of gallbladder without cholecystitis without obstruction; K57.30 Diverticulosis of large intestine without perforation or abscess without bleeding; K44.9 Diaphragmatic hernia without obstruction or gangrene
CPT/HCPCS: 82565; 84520; 74178; 36415; 74400; Q9967

== ENCOUNTER → 2024-02-24 | Outpatient (CLI) | payer MEDICARE ==
[2024-02-24 11:16] LABS: Basophils % (A) 0 %; Eosinophils # (A) 0.2 k/uL (0-0.7); Eosinophils % (A) 2 %; HCT 45.1 % (39.0-53.0); HGB 15.6 gm/dL (13.0-17.5); Lymphocytes # (A) 2.2 k/uL (1.0-4.8); Lymphocytes % (A) 24 %; MCH 31.4 pg (25.0-35.0); MCHC 34.7 g/dL (31.0-37.0); MCV 90.5 fL (80.0-100.0); Mean Platelet Volume 7.6; Monocytes # (A) 0.5 k/uL (0-1.0); Monocytes % (A) 5 %; Neutrophils % (A) 66 %; Platelet Count 201 k/uL (150-450); RBC 4.98 m/uL (4.30-5.90); RDW 14.3 % (11.5-15.5); WBC 9.1 k/uL (3.8-10.6)
[2024-02-24 11:37] LABS: African American GFR (CKD) 72 (>60 ml/min/1.73 sqM); Anion Gap 8 mmol/L; Blood Urea Nitrogen 23 mg/dL (9-20); Calcium 9.3 mg/dL (8.4-10.2); Carbon Dioxide 21 mmol/L (22-30); Chloride 109 mmol/L (98-107); Glucose 107 mg/dL (74-99); Non-African American GFR(CKD) 63 (>60 ml/min/1.73 sqM); Potassium 4.5 mmol/L (3.5-5.1); Sodium 138 mmol/L (137-145)
== END | disposition home or self-care (01) ==
LOC: PAT 10:41
PROVIDERS: ATTEND Urology
DX: Z01.812 Encounter for preprocedural laboratory examination (principal); N21.0 Calculus in bladder
CPT/HCPCS: 36415; 80048; 85025

== ENCOUNTER 2024-03-04 06:10 | Day surgery (SDC) | payer MEDICARE ==
--- NOTE | 2024-03-03 07:37 | P.GSHP ---
History of Present Illness H&P Date: 03/03/24 Chief Complaint: Bladder Calculi The patient is an 78-year-old white male with a long history of BPH, for which he has taken finasteride for over 10 years. He underwent a CT urogram in September 2023, revealing numerous bladder calculi measuring up to 3.2 cm in size. He denies dysuria and hematuria, but does report a weak urinary stream. He has been verified to be emptying his bladder. - Genitourinary (Male) Genitourinary: Reports urinary hesitancy, Denies dysuria, Denies flank pain, Denies hematuria Past Medical History Past Medical History: Hyperlipidemia Additional Past Medical History / Comment(s): crohns. BENIGH COLON TUMOR. History of Any Multi-Drug Resistant Organisms: None Reported Past Surgical History: Bowel Resection, Hernia Repair Additional Past Surgical History / Comment(s): BILATERAL CATARACTS REM/IMPLANTS. Past Anesthesia/Blood Transfusion Reactions: No Reported Reaction Past Psychological History: Depression Smoking Status: Former smoker Past Alcohol Use History: None Reported Additional Past Alcohol Use History / Comment(s): QUIT SMOKER ABOUT 28 YRS AGO. 1PPD. Past Drug Use History: None Reported - Past Family History Mother Family Medical History: No Reported History Medications and Allergies Home Medications Medication Instructions Recorded Confirmed Type traZODone HCL [Desyrel] 50 mg PO HS 11/19/21 03/01/24 History Aspirin EC [Ecotrin Low Dose] 81 mg PO Q48H 07/25/23 03/01/24 History Finasteride [Proscar] 5 mg PO HS 07/25/23 03/01/24 History [place]-3/Dha/Epa/Fish Oil [Fish Oil 1 cap PO DAILY 07/25/23 03/01/24 History 1,000 mg Softgel] Sertraline [Zoloft] 50 mg PO QAM 07/25/23 03/01/24 History Vitamin B Complex 1 cap PO DAILY 07/25/23 03/01/24 History Lurasidone [Latuda] 10 mg PO PC-SUPPER 03/01/24 03/01/24 History Sertraline [Zoloft] 25 mg PO PC-SUPPER 03/01/24 03/01/24 History buPROPion HCL [buPROPion HCL XL] 150 mg PO QAM 03/01/24 03/01/24 History Allergies Allergy/AdvReac Type Severity Reaction Status Date / Time No Known Allergies Allergy Verified 03/01/24 09:36 Surgical - Exam - General well developed, well nourished, no distress - Respiratory normal respiratory effort - Abdomen Abdomen: soft, non tender, no guarding, no rigid, no rebound - Genitourinary normal penis with no external lesions, testicles non-tender - Rectum Rectum: normal sphincter tone, no masses, other (Prostate enlarged and smooth) - Psychiatric oriented to time, oriented to person, oriented to place, speech is normal, memory intact Results - Imaging CT scan - pelvis: report reviewed, image reviewed Assessment and Plan (1) Calculus in bladder Status: Acute Code(s): N21.0 - CALCULUS IN BLADDER SNOMED Code(s): 38272231 Plan: The patient has been advised that his numerous large calculi cannot be reasonably removed endoscopically, and he has thus been advised to undergo an open cystolithotomy. The procedure has been reviewed in detail with the patient and his . They have been made aware of potential risks, which include an esthesia, bleeding, and infection. They have also been advised of general surgical risks such as DVT and pneumonia.
[~2024-03-04 06:10] MED LIST changes: -GLUCAGON 1 MG/ML VIAL IM STA; +LIDOCAINE 1% (10MG/ML) FOR IV START INTRADERMA PRN
[2024-03-04] MEDS: IV FLUID CONTINUATION 1,000 ML IV ONE (06:36)
[2024-03-04] MEDS: LACTATED RINGERS 1,000 ML IV SCH (06:57)
[2024-03-04] MEDS: DEXAMETHASONE SOD PHOSPHATE 4 MG/ML 1 ML VIAL IV ONE (06:57)
[2024-03-04] MEDS: ONDANSETRON 4 MG/2 ML VIAL IVP ONE (06:57)
[2024-03-04] MEDS ORDERED: GLYCOPYRROLATE 0.2 MG/ML 2 ML VIAL ONE (07:27)
[2024-03-04] MEDS ORDERED: ceFAZolin 1 GM/50 ML BAG (PMX) ONE (07:27)
[2024-03-04] MEDS ORDERED: MIDAZOLAM 2 MG/2 ML VIAL ONE (07:27)
[2024-03-04] MEDS ORDERED: fentaNYL (PF) 50 MCG/ML 2 ML AMP ONE (07:27)
[2024-03-04] MEDS ORDERED: ROCURONIUM 10 MG/ML (5 ML VIAL) IV ONE (07:27)
[2024-03-04] MEDS ORDERED: PROPOFOL 10 MG/ML 20 ML VIAL IV ONE (07:27)
[2024-03-04] MEDS ORDERED: NEOSTIGMINE 1 MG/ML 10 ML VIAL ONE (07:27)
[2024-03-04] MEDS ORDERED: LIDOCAINE 1% INJ 10MG/ML (20 ML MDV) ONE (07:27)
[2024-03-04] MEDS ORDERED: SUCCINYLCHOLINE CHLORIDE 200 MG/10 ML VIAL IV ONE (07:27)
[2024-03-04] MEDS: GENTAMICIN 440 MG in SODIUM CHLORIDE 0.9% 100 ML IVPB PRN (07:32)
[2024-03-04] MEDS: SODIUM CHLORIDE 0.9% 100 ML with ceFAZolin 2,000 MG IV ONE (07:48)
[2024-03-04] MEDS: HYDROmorphone 0.5 MG/0.5 ML SYRINGE IVP PRN (09:00)
[2024-03-04] MEDS ORDERED: HYDROmorphone 1 MG/ML 1 ML SYRINGE IVP PRN (09:08)
--- NOTE | 2024-03-04 09:17 | P.OP ---
Date of Procedure: 03/04/24 Preoperative Diagnosis: Bladder calculi Postoperative Diagnosis: Same Procedure(s) Performed: Open cystolithotomy Anesthesia: EMILY Surgeon: Praveen Ferguson Estimated Blood Loss (ml): 30 IV fluids (ml): 900 Pathology: other (Bladder calculi, for gross inspection only) Condition: stable Disposition: PACU Indications for Procedure: The patient is an 78-year-old white male with a long history of BPH, for which he has taken finasteride for over 10 years. He underwent a CT urogram in September 2023, revealing numerous bladder calculi measuring up to 3.2 cm in size. He denies dysuria and hematuria, but does report a weak urinary stream. He has been verified to be emptying his bladder. Operative Findings: Multiple bladder calculi measuring up to 3.5 cm in diameter. Description of Procedure: The patient was taken to the operating room and placed in the supine position. The abdomen and external genitalia were prepped and draped sterilely. A 20 [place] Walker catheter was inserted. The scalpel was used to make a midline infraumbilical skin incision. The Bovie electrocautery was used to incise the subcutaneous fat and the linea alba in the midline. The Bookwalter retractor was used to retract the rectus abdominis muscles, exposing the bladder. The bladder was filled with normal saline via the Walker catheter, and the Bovie electrocautery was then used to make an anterior midline cystotomy incision. Multiple calculi were then removed from the bladder. The largest was a tom stone measuring approximately 3.5 cm in diameter. After ensuring that all calculi were removed from the bladder, the cystotomy incision was closed in 3 layers. The mucosa was closed using 3-0 Vicryl suture in a running, interlocking fashion. The seromuscular layer was closed in 2 layers using 2-0 Vicryl suture in a running fashion. The Walker catheter was then irrigated. It irrigated well, and there was no extravasation from the incision. A RICCARDO drain was left within the pelvis, and was brought out through a separate stab incision to the left of the midline incision. The drain was sutured to the skin using 2- 0 silk suture, and was later attached to bulb suction. Hemostasis was excellent. The linea alba was closed using #1 double-stranded PDS suture in a running fashion. The skin was closed using olivia. A sterile gauze dressing was applied over the incision. All sponge and needle counts were correct. The patient tolerated the procedure well and was taken to the recovery in stable condition.
[2024-03-04] MEDS: KETOROLAC 15 MG/ML 1 ML VIAL IVP SCH (10:48)
[2024-03-04] MEDS: droPERidol 5 MG/2 ML VIAL IVP ONE (14:30)
[2024-03-04] MEDS: LURASIDONE 20 MG TAB PO SCH (14:34)
[2024-03-04] MEDS: DEXTROSE 5%-0.45% NACL 1,000 ML IV SCH (14:44)
[2024-03-04] MEDS ORDERED: ONDANSETRON 4 MG/2 ML VIAL IVP PRN (22:15)
[2024-03-04] MEDS: SERTRALINE 25 MG TAB PO SCH (22:42)
[2024-03-04] MEDS: traZODone HCL 50 MG TAB PO SCH (23:49)
[2024-03-04] MEDS: FINASTERIDE 5 MG TAB PO SCH (23:49)
[2024-03-04] MEDS: HEPARIN SODIUM,PORCINE 5,000 UNIT/ML 1 ML VIAL SQ SCH (23:49)
[2024-03-04] MEDS: MAG HYDROX/AL HYDROX/SIMETH 30 ML CUP PO PRN (23:50)
[2024-03-05] MEDS: SERTRALINE 50 MG TAB PO SCH (09:33)
[2024-03-05] MEDS: buPROPion XL 150 MG TAB.ER.24H PO SCH (09:33)
--- NOTE | 2024-03-05 12:47 | P.PN ---
Subjective Progress Note Date: 03/05/24 Principal diagnosis: POD #1, s/p open cystyolithotomy The patient denies nausea and vomiting. He is receiving Toradol every 6 hours and states that he is not experiencing any incisional pain. He has ambulated. He denies chest pain and dyspnea. Objective - Vital Signs Vital signs: Vital Signs Temp 98.3 F 03/05/24 07:21 Pulse 74 03/05/24 07:21 Resp 17 03/05/24 07:21 BP 121/73 03/05/24 07:21 Pulse Ox 95 03/05/24 08:11 FiO2 Intake & Output 03/04/24 03/05/24 03/05/24 18:59 06:59 18:59 Intake Total 1661 Output Total 780 1750 Balance 881 -1750 Weight 104 kg Intake: IV 1661 Output: Urine 750 1750 Estimated Blood Loss 30 Other: Voiding Method Indwelling Catheter Indwelling Catheter - Constitutional General appearance: Present: average body habitus, cooperative, no acute distress - Gastrointestinal Gastrointestinal Comment(s): Soft, non-tender, non-distended. Dressing dry and intact. Scant RICCARDO output. Walker catheter is draining clear yellow urine. - Psychiatric Psychiatric: Present: A&O x's 3 Assessment and Plan (1) Calculus in bladder Current Visit: Yes Status: Acute Code(s): N21.0 - CALCULUS IN BLADDER SNOMED Code(s): 98428358 Plan: - Advance diet as tolerated - Ambulate - Anticipate possible discharge home tomorrow with Walker catheter
[2024-03-05 19:13] VITALS: RESP 16
[2024-03-06 03:03] VITALS: PULSE 75
[2024-03-06 09:29] VITALS: BP 136/84; TEMP 98.3
--- NOTE | 2024-03-06 09:50 | P.DS ---
Providers Expected date of discharge: 03/06/24 Attending physician: Praveen Ferguson Primary care physician: Sun Beltran - Discharge Diagnosis(es) (1) Calculus in bladder Current Visit: Yes Status: Acute Hospital Course: On the day of admission, the patient underwent an uncomplicated open cystolithotomy. The perioperative course was unremarkable. Throughout the hospitalization, he remained afebrile with stable vital signs. The Walker catheter continued to drain clear yellow urine, and there was no RICCARDO drainage. He ambulated well and tolerated diet. At the time of discharge, he reported only minimal incisional discomfort. He denied chest pain and shortness of breath. He had not had a bowel movement but was passing flatus. Procedures: Open cystolithotomy on March 04, 2024 Patient Condition at Discharge: Good Plan - Discharge Summary Discharge Rx Participant: No New Discharge Prescriptions: New Ciprofloxacin HCl [Cipro] 250 mg PO Q12HR #6 tablet Ketorolac [Toradol] 10 mg PO Q6HR PRN #10 tab PRN Reason: Pain No Action Vitamin B Complex 1 cap PO DAILY Sertraline [Zoloft] 25 mg PO PC-SUPPER traZODone HCL [Desyrel] 50 mg PO HS [place]-3/Dha/Epa/Fish Oil [Fish Oil 1,000 mg Softgel] 1 cap PO DAILY Finasteride [Proscar] 5 mg PO HS Aspirin EC [Ecotrin Low Dose] 81 mg PO Q48H Sertraline [Zoloft] 50 mg PO QAM Lurasidone [Latuda] 10 mg PO PC-SUPPER buPROPion HCL [buPROPion HCL XL] 150 mg PO QAM Discharge Medication List traZODone HCL [Desyrel] 50 mg PO HS 11/19/21 [History] Aspirin EC [Ecotrin Low Dose] 81 mg PO Q48H 07/25/23 [History] Finasteride [Proscar] 5 mg PO HS 07/25/23 [History] [place]-3/Dha/Epa/Fish Oil [Fish Oil 1,000 mg Softgel] 1 cap PO DAILY 07/25/23 [History] Sertraline [Zoloft] 50 mg PO QAM 07/25/23 [History] Vitamin B Complex 1 cap PO DAILY 07/25/23 [History] Lurasidone [Latuda] 10 mg PO PC-SUPPER 03/01/24 [History] Sertraline [Zoloft] 25 mg PO PC-SUPPER 03/01/24 [History] buPROPion HCL [buPROPion HCL XL] 150 mg PO QAM 03/01/24 [History] Ciprofloxacin HCl [Cipro] 250 mg PO Q12HR #6 tablet 03/06/24 [Rx] Ketorolac [Toradol] 10 mg PO Q6HR PRN #10 tab 03/06/24 [Rx] Follow up Appointment(s)/Referral(s): Praveen Ferguson MD [STAFF PHYSICIAN] - 03/16/24 Activity/Diet/Wound Care/Special Instructions: Discharge home with Walker catheter. Please provide patient with both an overnight drainage bag as well as a urinary leg bag. RICCARDO drain should be removed prior to discharge. Patient may begin showering on March 07, 2024. He should drink plenty of fluids and avoid strenuous activity. Resume home medications including ASA. Begin taking ciprofloxacin on March 15, 2024. Discharge Disposition: HOME SELF-CARE
== END 2024-03-06 13:35 | disposition home or self-care (01) ==
LOC: OR 06:10 → 4SSUR 13:20 → OR 03-06 13:35
PROVIDERS: ATTEND Urology
DX: N21.0 Calculus in bladder (principal); E78.5 Hyperlipidemia, unspecified; N40.1 Benign prostatic hyperplasia with lower urinary tract symptoms; F32.A Depression, unspecified; K50.90 Crohn's disease, unspecified, without complications; Z87.891 Personal history of nicotine dependence; Z98.890 Other specified postprocedural states; Z79.82 Long term (current) use of aspirin; Z79.899 Other long term (current) drug therapy; Z90.49 Acquired absence of other specified parts of digestive tract
CPT/HCPCS: 51050; 94760; 82365; S0138 ×2; J2250; J0330; J1644 ×3; J1100; J2710; J0690 ×4; J2405; J2003; J3010; J1580; J1885 ×3; J2704; J1171; J1596